=== PATIENT | female | born 1950 | race Caucasian/White ===

== ENCOUNTER 2017-08-21 21:15 | Emergency (ER) | payer MEDICARE, OTHER ==
[2017-08-21 22:04] VITALS: BP 140/90
[2017-08-21 22:04] LABS: CHLORIDE,CL 103 mEq/L (98-106); SODIUM,NA 141 mEq/L (136-145)
--- NOTE | 2017-08-21 22:22 | EDM.PDOC ---
ED HPI GENERAL MEDICAL PROBLEM - General Chief Complaint: General Stated Complaint: light headed, short of breath Time Seen by Provider: 08/21/17 21:47 Source of Information: Reports: Patient History Limitations: Reports: No Limitations - History of Present Illness INITIAL COMMENTS - FREE TEXT/NARRATIVE: Presents with pain in the left shoulder that started about 5 pm and has improved after she took 2 aspirin at home.. has been having multiple tests done recently and is waiting to be called regarding an angiogram that is supposed to done in [place]. Tonight was feeling a little lightheaded and sort of breathe. Denied having any chest pain. Has not been doing anything stressful or strenuous. Denies any fever or cough. Did feel some SOB that has improved since being here. O2 sats when arriving here was 95-96% on room air. She does admit that she is anxious about needing an angiogram and waiting around the last 2 days to hear from [place]. 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 - Related Data Allergies Allergy/AdvReac Type Severity Reaction Status Date / Time Sulfa (Sulfonamide Allergy Shortness Verified 08/21/17 21:27 Antibiotics) of Breath Home Meds: Home Meds Cholecalciferol (Vitamin D3) [Vitamin D3] 2,000 units PO DAILY 12/29/13 [History ] Glucosamine HCl/Chondr Barnes A Na [Glucosamine-Chondroitin Liq] 1 dose PO DAILY 11/04 [History] Krill/Ponce-3/Dha/Epa/Lipids [Ponce-3 Krill Oil 500 mg Sfgl] 500 mg PO BID 12/29 [History] Flaxseed Oil 1 each PO DAILY 08/14/17 [History] Ipratropium/Albuterol Sulfate [Iprat-Albut 0.5-3(2.5) mg/3 ml] 1 each INH Q4HR PRN 08/14/17 [History] Magnesium 800 mg PO BID 08/14/17 [History] Methylcellulose [Fiber] 1 each PO DAILY 08/14/17 [History] Potassium Gluconate [Potassium] 2 each PO DAILY 08/14/17 [History] Rosuvastatin Calcium 20 mg PO DAILY 08/14/17 [History] Torsemide 20 mg PO Q36H 08/14/17 [History] Aspirin 325 mg PO DAILY 08/21/17 [History] Past Medical History HEENT History: Reports: Cataract Cardiovascular History: Reports: Heart Murmur, High Cholesterol Respiratory History: Reports: SOB Gastrointestinal History: Reports: Cholelithiasis 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 bladder, rectum were prolapsing Endocrine Surgical History: Reports: Other (See Below) Other Endocrine Surgeries/Procedures: has nodule on thyroid but it is too small to do a biopsy so they are watching it Musculoskeletal Surgical History: Reports: None Social & Family History - Tobacco Use Smoking Status *Q: Current Every Day Smoker Years of Tobacco use: 48 Packs/Tins Daily: 1 ED ROS GENERAL - Review of Systems Review Of Systems: See Below Constitutional: Reports: Weakness. Denies: Fever, Chills HEENT: Reports: No Symptoms Respiratory: Reports: Shortness of Breath Cardiovascular: Reports: No Symptoms GI/Abdominal: Reports: No Symptoms : Reports: No Symptoms Musculoskeletal: Reports: Other (left scapular pain up into the left side of neck) Skin: Reports: No Symptoms Neurological: Reports: Other (" a little lightheaded") ED EXAM, GENERAL - Physical Exam Exam: See Below Exam Limited By: No Limitations General Appearance: Alert, WD/WN, Anxious, Mild Distress Ears: Normal External Exam, Normal Canal, Normal TMs Nose: Normal Inspection Throat/Mouth: Normal Inspection, Normal Oropharynx, No Airway Compromise Head: Atraumatic, Normocephalic Neck: Normal Inspection, Supple, Non-Tender, Full Range of Motion, Tender Lateral (left side that is reproducible with palpation.) Respiratory/Chest: No Respiratory Distress, Lungs Clear, Normal Breath Sounds, Chest Non-Tender Cardiovascular: Regular Rate, Rhythm, No Edema GI/Abdominal: Normal Bowel Sounds, Soft, Non-Tender Back Exam: Normal Inspection, Full Range of Motion Extremities: Normal Range of Motion, Non-Tender, No Pedal Edema, Normal Capillary Refill Neurological: Alert, Oriented Psychiatric: Normal Affect Skin Exam: Warm, Dry, Intact, Normal Color Course - Vital Signs Last Recorded V/S: Last Vital Signs Temp 96.3 F 08/21/17 22:03 Pulse 58 L 08/21/17 22:03 Resp 16 08/21/17 22:03 BP 140/90 08/21/17 22:03 Pulse Ox 96 08/21/17 22:03 - Orders/Labs/Meds Orders: Active Orders 24 hr Category Date Time Status EKG Documentation Completion [RC] STAT Care 08/21/17 21:39 Active Chest 2V [CR] Stat Exams 08/21/17 21:39 Taken Labs: Laboratory Tests 08/21/17 08/21/17 08/21/17 Range/Units 21:46 21:46 21:46 WBC 10.7 H (5.0-10.0) 10^3/uL RBC 4.90 (4.00-5.50) 10^6/uL Hgb 15.1 (12.0-16.0) g/dL Hct 44.2 (37.0-47.0) % MCV 90.2 (82.0-94.0) fL MCH 30.8 (27.0-32.0) pg MCHC 34.2 (33.0-38.0) g/dL RDW Coeff of Tea 14.2 (11.0-15.0) % Plt Count 271 (150-400) 10^3/uL Neut % (Auto) 49.6 (35-85) % Lymph % (Auto) 35.9 (10-55) % [place] % (Auto) 12.9 (0-16) % Eos % (Auto) 1.4 (0-5) % Baso % (Auto) 0.2 (0-3) % Neut # (Auto) 5.29 (1.80-7.00) 10^3/uL Lymph # (Auto) 3.82 (1.00-4.80) 10^3/uL [place] # (Auto) 1.37 H (0.00-0.80) 10^3/uL Eos # (Auto) 0.15 (0.00-0.45) 10^3/uL Baso # (Auto) 0.02 10^3/uL PT 9.7 (9.7-12.3) SEC INR 0.93 (0.92-1.18) APTT 27.6 (23.2-32.3) SEC Sodium 141 (136-145) mEq/L Potassium 3.5 (3.5-5.0) mEq/L Chloride 103 (98-106) mEq/L Carbon Dioxide 29 (21-32) mmol/L BUN 14 (7-18) mg/dL Creatinine 0.7 (0.6-1.0) mg/dL Est Cr Clr Drug Dosing 63.37 mL/min Estimated GFR (MDRD) > 60 (>=60) mL/min Glucose 100 H (75-99) mg/dL Calcium 8.6 (8.4-10.1) mg/dL Lactate Dehydrogenase 168 (100-190) U/L Creatine Kinase 56 (21-215) U/L Troponin I < 0.017 (0.00-0.06) ng/mL Departure - Departure Time of Disposition: 22:18 Disposition: Home, Self-Care 01 Condition: Good Clinical Impression: Anxiety about health - Discharge Information Referrals: Randy Otero MD [Primary Care Provider] - Forms: ED Department Discharge Additional Instructions: Recheck if any changes in how you feel I will discuss you with Dr. Otero in the AM and his office will hopefully contact [place] again for time of testing Push fluids as much as possible Leg cramps may be from the fluid being pulled out of leg tissue. Try tylenol, advil and elevate. - Problem List & Annotations (1) Anxiety about health SNOMED Code(s): 325845042 Code(s): F41.8 - OTHER SPECIFIED ANXIETY DISORDERS Status: Acute Priority : High - Problem List Review Problem List Initiated/Reviewed/Updated: Yes - My Orders Last 24 Hours: My Active Orders 08/21/17 21:39 EKG Documentation Completion [RC] STAT Chest 2V [CR] Stat - Assessment/Plan Last 24 Hours: My Active Orders 08/21/17 21:39 EKG Documentation Completion [RC] STAT Chest 2V [CR] Stat
== END 2017-08-21 22:25 | disposition home or self-care (01) ==
LOC: CC.ED 21:15
DX: F41.9 Anxiety disorder, unspecified (principal); F17.210 Nicotine dependence, cigarettes, uncomplicated; Z88.2 Allergy status to sulfonamides; Z79.82 Long term (current) use of aspirin
CPT/HCPCS: 36415; 71046; 80048; 82550; 83615; 84484; 85025; 85610; 85730; 93005; 99285

== ENCOUNTER 2021-10-28 10:53 | Emergency (ER) | payer MEDICARE, OTHER ==
[2021-10-28 11:26] LABS: CHLORIDE,CL 101 mEq/L (98-106); ESTIMATED GFR 80 mL/min (>=60); SODIUM,NA 139 mEq/L (136-145)
[2021-10-28 11:33] LABS: PTT,PARTIAL THROMBOPLSTIN TIME 25.5 SEC (23.2-32.3)
[2021-10-28] MEDS: Take Home: predniSONE 20 MG, 2 Tab Pack PO ONE (12:26)
[2021-10-28 13:49] VITALS: BP 133/66; PULSE 67
== END 2021-10-28 12:40 | disposition home or self-care (01) ==
LOC: CC.ED 10:53
DX: H34.11 Central retinal artery occlusion, right eye (principal); I50.9 Heart failure, unspecified; Z88.2 Allergy status to sulfonamides; Z79.899 Other long term (current) drug therapy; Z79.84 Long term (current) use of oral hypoglycemic drugs; Z90.49 Acquired absence of other specified parts of digestive tract; Z90.710 Acquired absence of both cervix and uterus
CPT/HCPCS: 36415; 80053; 83735; 85025; 85379; 85610; 85651; 85730; 86140; 99283; 99284; J7512